=== PATIENT | female | born 1985 | race Caucasian/White ===

== ENCOUNTER 2017-08-08 08:02 | Outpatient (CLI) | payer BC ==
--- NOTE | 2017-08-08 12:50 | NM ---
HEPATOBILIARY SCAN: HISTORY: Right upper quadrant pain and vomiting, unspecified. RADIOPHARMACEUTICAL: 5.2 mCi Technetium 99m-mebrofenin injected intravenously. FINDINGS: There is good tracer extraction by the liver with prompt excretion into the biliary tract and small b owel loops and normal filling of the gallbladder. The calculated gallbladder ejection fraction follo wing an oral fatty meal measures 71%. IMPRESSION: Normal exam. POS: OBED
== END 2017-08-08 08:03 | disposition home or self-care (01) ==
LOC: NM 08:02
PROVIDERS: ATTEND Internal Medicine
DX: R10.11 Right upper quadrant pain (principal); R11.0 Nausea; K82.4 Cholesterolosis of gallbladder
CPT/HCPCS: 78227; A9537

== ENCOUNTER 2022-07-25 21:05 | Inpatient (IN) | payer BC ==
[2022-07-26] MEDS ORDERED: HYDROcodone/Acetaminophen 5/325 mg Tablet PO PRN (00:59)
[2022-07-26] MEDS ORDERED: Sodium Chloride 0.9% 1,000 ML IV SCH ×2 (01:15→07:15)
[2022-07-26] MEDS: Morphine 2 MG/ML VIAL SLOW IVP PRN ×4 (01:32→22:40)
[2022-07-26 01:49] VITALS: BMI 30.2
[2022-07-26] MEDS: Estradiol 1 MG TAB PO SCH ×3 (02:39→21:26)
[2022-07-26] MEDS: Cefepime 1 GM in Sodium Chloride 0.9% 100 ML IVPB SCH ×2 (02:41→13:48)
[2022-07-26] MEDS: Acetaminophen 325 MG TAB PO PRN (04:55)
[2022-07-26 06:11] LABS: #Lymphocytes 1.1 thou/uL (1.20-3.40); #Monocytes 1.1 thou/uL (0.11-0.59); #Neutrophils 7.1 thou/uL (1.40-6.50); %Basophils 0.5 % (0.0-1.0); %Eosinophils 0.4 % (0.0-10.0); %Lymphocytes 11.4 % (21.0-51.0); %Monocytes 11.6 % (0.0-10.0); %Neutrophils 76.2 % (42.0-75.0); Hemoglobin 10.9 g/dL (12.0-16.0); Mean Corpuscular HGB CONC 34.2 g/dL (32.0-36.0); Mean Corpuscular Hemoglobin 31.2 pg (27.0-31.0); Mean Corpuscular Volume 91.3 fl (78.0-98.0); Mean Platelet Volume 7.7 fL (7.4-10.4); Platelet Count 159 10x3/uL (130-400); RBC Distribution Width 11.1 % (11.5-14.5); Red Blood Cell (RBC) Count 3.51 mill/uL (4.20-5.40); White Blood Cell (WBC) Count 9.3 10x3/uL (4.8-10.8)
[2022-07-26] MEDS: Ondansetron PF 4 MG/2 ML Vial IVP PRN ×2 (06:11→13:47)
[2022-07-26 06:33] LABS: Anion Gap 10 mmol/L (10-20); BUN (Urea Nitrogen) 12 mg/dL (7.0-18.7); Calc. Creatinine Clearance 108 mL/min (70-130); Calcium 8.2 mg/dL (7.8-10.44); Carbon Dioxide 22 mmol/L (22-29); Chloride 105 mmol/L (98-107); Estimated GFR 95; Glucose 155 mg/dL (70-105); Potassium 3.4 mmol/L (3.5-5.1); Sodium 134 mmol/L (136-145)
[2022-07-26] MEDS ORDERED: FLU VACC QS2022-23(6MO UP)/PF 60 MCG/0.5 ML SYRINGE IM ONE (09:00)
[2022-07-26] MEDS ORDERED: traMADol HCl 50 MG TAB PO PRN (11:36)
[2022-07-26] MEDS: Ketorolac Tromethamine 30 MG/ML VIAL IVP SCH (11:52)
[2022-07-26] MEDS: hydrOXYzine 25 MG TAB PO PRN ×2 (13:48→22:40)
[2022-07-27] MEDS: Cefepime 1 GM in Sodium Chloride 0.9% 100 ML IVPB SCH ×2 (01:50→15:28)
[2022-07-27] MEDS: Acetaminophen 325 MG TAB PO PRN (05:33)
[2022-07-27 06:42] LABS: #Basophils 0.1 thou/uL (0.0-0.2); #Eosinphils 0.1 thou/uL (0.0-0.7); #Lymphocytes 1.5 thou/uL (1.20-3.40); #Monocytes 0.6 thou/uL (0.11-0.59); %Basophils 1.3 % (0.0-1.0); %Eosinophils 1.9 % (0.0-10.0); %Lymphocytes 29.5 % (21.0-51.0); %Monocytes 10.9 % (0.0-10.0); %Neutrophils 56.4 % (42.0-75.0); Hemoglobin 10.5 g/dL (12.0-16.0); Mean Corpuscular HGB CONC 33.7 g/dL (32.0-36.0); Mean Corpuscular Hemoglobin 31.3 pg (27.0-31.0); Mean Platelet Volume 7.6 fL (7.4-10.4); Platelet Count 155 10x3/uL (130-400); RBC Distribution Width 11.1 % (11.5-14.5); Red Blood Cell (RBC) Count 3.34 mill/uL (4.20-5.40); White Blood Cell (WBC) Count 5.2 10x3/uL (4.8-10.8)
[2022-07-27 07:03] LABS: Anion Gap 8 mmol/L (10-20); BUN (Urea Nitrogen) 9 mg/dL (7.0-18.7); Calc. Creatinine Clearance 129 mL/min (70-130); Carbon Dioxide 23 mmol/L (22-29); Chloride 109 mmol/L (98-107); Estimated GFR 114; Glucose 91 mg/dL (70-105); Potassium 3.6 mmol/L (3.5-5.1); Sodium 136 mmol/L (136-145)
[2022-07-27] MEDS: hydrOXYzine 25 MG TAB PO PRN (07:43)
[2022-07-27] MEDS ORDERED: Ketorolac Tromethamine 30 MG/ML VIAL IVP PRN (08:22)
[2022-07-27] MEDS: Senokot S 8.6-50 MG TAB PO SCH ×2 (08:46→20:42)
[2022-07-27] MEDS: Polyethylene Glycol 3350 17 GM Packet PO SCH (08:46)
[2022-07-27] MEDS: Ketorolac Tromethamine 30 MG/ML VIAL IVP SCH (08:47)
[2022-07-27] MEDS: Cefepime 2 GM in Sodium Chloride 0.9% 100 ML IVPB SCH (14:30)
[2022-07-27] MEDS: Estradiol 1 MG TAB PO SCH (20:42)
[2022-07-28] MEDS: Cefepime 2 GM in Sodium Chloride 0.9% 100 ML IVPB SCH (01:06)
[2022-07-28 07:05] LABS: #Eosinphils 0.1 thou/uL (0.0-0.7); #Lymphocytes 1.6 thou/uL (1.20-3.40); #Monocytes 0.5 thou/uL (0.11-0.59); #Neutrophils 1.5 thou/uL (1.40-6.50); %Basophils 0.4 % (0.0-1.0); %Eosinophils 3.3 % (0.0-10.0); %Lymphocytes 43.2 % (21.0-51.0); %Monocytes 13.8 % (0.0-10.0); %Neutrophils 39.3 % (42.0-75.0); Hemoglobin 10.2 g/dL (12.0-16.0); Mean Corpuscular HGB CONC 32.5 g/dL (32.0-36.0); Mean Corpuscular Hemoglobin 30.4 pg (27.0-31.0); Mean Corpuscular Volume 93.7 fl (78.0-98.0); Mean Platelet Volume 8.2 fL (7.4-10.4); Platelet Count 177 10x3/uL (130-400); RBC Distribution Width 11.1 % (11.5-14.5); Red Blood Cell (RBC) Count 3.36 mill/uL (4.20-5.40); White Blood Cell (WBC) Count 3.7 10x3/uL (4.8-10.8)
[2022-07-28 07:26] LABS: Anion Gap 9 mmol/L (10-20); BUN (Urea Nitrogen) 11 mg/dL (7.0-18.7); Calc. Creatinine Clearance 123 mL/min (70-130); Calcium 8.1 mg/dL (7.8-10.44); Carbon Dioxide 23 mmol/L (22-29); Chloride 111 mmol/L (98-107); Estimated GFR 112; Glucose 85 mg/dL (70-105); Sodium 139 mmol/L (136-145)
[2022-07-28] MEDS: Polyethylene Glycol 3350 17 GM Packet PO SCH (08:05)
[2022-07-28] MEDS: Ondansetron PF 4 MG/2 ML Vial IVP PRN (08:06)
[2022-07-28] MEDS: Senokot S 8.6-50 MG TAB PO SCH (08:06)
[2022-07-28 09:29] VITALS: TEMP 98.4
[2022-07-28 12:52] VITALS: BP 117/66
== END 2022-07-28 12:59 | disposition home or self-care (01) | DRG 872 ==
LOC: OBSVTOIN 21:05 → T4-B 21:05
PROVIDERS: ADMIT Internal Medicine; ATTEND Hospitalist
DX: A41.51 Sepsis due to Escherichia coli [E. coli] (principal); N10 Acute pyelonephritis; M79.7 Fibromyalgia; N20.0 Calculus of kidney; N30.90 Cystitis, unspecified without hematuria; J45.20 Mild intermittent asthma, uncomplicated; G47.00 Insomnia, unspecified; N28.89 Other specified disorders of kidney and ureter; Z87.442 Personal history of urinary calculi; Z88.2 Allergy status to sulfonamides; Z79.899 Other long term (current) drug therapy; Z98.890 Other specified postprocedural states; Z90.710 Acquired absence of both cervix and uterus; Z98.84 Bariatric surgery status; Z87.891 Personal history of nicotine dependence
CPT/HCPCS: 36415; 80048; 85025; J0692; J1885; J2272; J2405; J3490; J7050

== ENCOUNTER 2022-08-12 13:43 | Emergency (ER) | payer BC ==
[2022-08-12 14:23] LABS: #Basophils 0.1 thou/uL (0.0-0.2); #Eosinphils 0.2 thou/uL (0.0-0.7); #Lymphocytes 2.5 thou/uL (1.20-3.40); #Monocytes 0.5 thou/uL (0.11-0.59); #Neutrophils 4.6 thou/uL (1.40-6.50); %Eosinophils 2.5 % (0.0-10.0); %Lymphocytes 32.2 % (21.0-51.0); %Monocytes 6.3 % (0.0-10.0); %Neutrophils 58.1 % (42.0-75.0); Hemoglobin 13.5 g/dL (12.0-16.0); Mean Corpuscular HGB CONC 33.7 g/dL (32.0-36.0); Mean Corpuscular Hemoglobin 30.7 pg (27.0-31.0); Mean Corpuscular Volume 91.2 fl (78.0-98.0); Mean Platelet Volume 7.3 fL (7.4-10.4); Platelet Count 247 10x3/uL (130-400); RBC Distribution Width 11.2 % (11.5-14.5); Red Blood Cell (RBC) Count 4.38 mill/uL (4.20-5.40); White Blood Cell (WBC) Count 7.8 10x3/uL (4.8-10.8)
[2022-08-12 14:42] LABS: ALT (SGPT) 16 U/L (8-55); AST (SGOT) 28 U/L (5-34); Albumin 4.2 g/dL (3.5-5.0); Alkaline Phosphatase 80 U/L (40-110); Anion Gap 12 mmol/L (10-20); BUN (Urea Nitrogen) 18 mg/dL (7.0-18.7); Bilirubin, Total 0.4 mg/dL (0.2-1.2); Calc. Creatinine Clearance 0 mL/min (70-130); Calcium 9.4 mg/dL (7.8-10.44); Carbon Dioxide 26 mmol/L (22-29); Chloride 104 mmol/L (98-107); Estimated GFR 84; Globulin 3.2 g/dL (2.4-3.5); Glucose 82 mg/dL (70-105); Potassium 3.9 mmol/L (3.5-5.1); Protein, Total 7.4 g/dL (6.0-8.3); Sodium 138 mmol/L (136-145)
[2022-08-12 15:58] LABS: Bilirubin Negative (Negative); Blood, Urine Negative (Negative); Clarity Clear (Clear); Glucose, Urine (Dipstick) Normal (Negative); Ketone, Urine Trace mg/dL (Negative); Leukocyte Negative Leu/uL (Negative); Nitrite Negative (Negative); Protein, Urine (Dipstick) 10 mg/dL (Neg-Trace); Specific Gravity, Urine 1.029 (1.002-1.036); Urobilinogen Normal mg/dL (Less than 2); pH, Urine 5.5 (5.0-9.0)
[2022-08-12 17:46] LABS: Pregnancy Test - Urine (BHCG) Negative (Negative); Pregu Control Background? CLEAR/WHITE (CLR/WHITE); Pregu Control Bar Appear? YES (CONTROL BAR); Specific Gravity 1.029 (1.002-1.036)
== END 2022-08-12 17:29 | disposition home or self-care (01) ==
LOC: ERS 13:43
DX: N12 Tubulo-interstitial nephritis, not specified as acute or chronic (principal)
CPT/HCPCS: 36415; 74176; 80053; 81003; 81025; 85025

== ENCOUNTER 2023-06-26 07:12 | Outpatient (CLI) | payer OTHER | END 2023-06-26 07:13 | disposition home or self-care (01) | LOC: CT 07:12 | PROVIDERS: ATTEND Physician Assistant | DX: R10.9 Unspecified abdominal pain (principal); N20.0 Calculus of kidney; R11.0 Nausea; Z90.3 Acquired absence of stomach [part of] | CPT/HCPCS: 74177 ==

== ENCOUNTER 2025-03-14 12:43 | Outpatient (CLI) | payer OTHER | END 2025-03-14 12:44 | disposition home or self-care (01) | LOC: BICMAMMO 12:43 | PROVIDERS: ATTEND Family Medicine | DX: Z12.31 Encounter for screening mammogram for malignant neoplasm of breast (principal); Z78.0 Asymptomatic menopausal state; Z80.3 Family history of malignant neoplasm of breast; M85.851 Other specified disorders of bone density and structure, right thigh | CPT/HCPCS: 77063; 77067; 77080 ==